=== PATIENT | male | born 1970 | race African-American/Black ===

== ENCOUNTER 2020-08-05 16:49 | Emergency (ER) | payer SELFPAY ==
[~2020-08-05] VITALS: Ht 190.5 cm; Wt 98.0 kg
[2020-08-05] MEDS ORDERED: NAPROSYN500 MG PO (18:27)
== END 2020-08-05 18:38 | disposition home or self-care (01) ==
LOC: FSED 17:20
DX: M25.521 Pain in right elbow (principal); W22.09XA Striking against other stationary object, initial encounter; M77.8 Other enthesopathies, not elsewhere classified
CPT/HCPCS: 99283